=== PATIENT | male | born 1955 | race Caucasian/White ===

== ENCOUNTER 2021-07-02 13:05 | Outpatient (CLI) | payer MEDICARE ==
[~2021-07-02 13:05] MED LIST: Magnevist 469MG/ML 20 ML VIAL ONE
== END 2021-07-02 13:06 | disposition home or self-care (01) ==
LOC: TBSIIMAG 13:05
PROVIDERS: ATTEND Urology
DX: C61 Malignant neoplasm of prostate (principal)
CPT/HCPCS: 72197; 82565; A9579